=== PATIENT | female | born 1965 | race Caucasian/White ===

== ENCOUNTER → 2023-07-08 | Outpatient (CLI) | payer BC | LOC: M CARPUL 15:04 | DX: C50.919 Malignant neoplasm of unspecified site of unspecified female breast (principal) ==

== ENCOUNTER → 2024-04-17 | Outpatient (CLI) | payer BC ==
[~2024-04-17] MED LIST: BACT800T5 PO; BYST2.5T2 PO; DEXA4TA PO; FAMO20TA PO; GABA-1171 PO; GABA-282 PO; GABA-284 PO; LOPE-39 PO; ONDA-284 PO; OXYC-517 PO; PREG25CA PO; PROB250C PO; PROC10TA5 PO; gas x PO
== END ==
LOC: M CARPUL 09:28
PROVIDERS: ATTEND Nurse Practitioner
DX: C50.919 Malignant neoplasm of unspecified site of unspecified female breast (principal)

== ENCOUNTER → 2024-05-09 | Outpatient (CLI) | payer BC ==
[~2024-05-09] VITALS: Ht 165.1 cm; Wt 51.2 kg
[~2024-05-09] MED LIST changes: +CALCCAP4 PO; +CARD40TA PO; +DESI10TA28 PO; +LYRI75CA PO; +TAMO20TA8 PO
[2024-05-09 10:25] VITALS: BP 127/73; O2SAT 100
== END ==
LOC: M PAL 10:00
PROVIDERS: ATTEND Nurse Practitioner Adult Health
DX: C50.911 Malignant neoplasm of unspecified site of right female breast (principal); M54.16 Radiculopathy, lumbar region; M54.50 Low back pain, unspecified; M79.605 Pain in left leg; G89.3 Neoplasm related pain (acute) (chronic); G89.29 Other chronic pain; Z51.5 Encounter for palliative care; Z92.21 Personal history of antineoplastic chemotherapy; Z79.891 Long term (current) use of opiate analgesic; Z79.810 Long term (current) use of selective estrogen receptor modulators (SERMs); Z80.7 Family history of other malignant neoplasms of lymphoid, hematopoietic and related tissues

== ENCOUNTER → 2024-06-14 | Outpatient (CLI) | payer BC ==
[~2024-06-14] VITALS: Ht 165.1 cm; Wt 52.0 kg
[~2024-06-14] MED LIST changes: +ALBU2TAB13 PO; +DULC10SU2 PR; +EXEM25TA PO; +LYRI150C PO; +NEXI40CA PO; +PRED10TA2 PO; +PREG200C2 PO; +PREG50CA PO; +PROA1AER2 INH; +SPIR1CAP INH; +TREL1AER PO; +VENTAER INH
[2024-06-14 10:26] VITALS: BP 127/64; O2SAT 96
== END ==
LOC: M PAL 10:02
PROVIDERS: ATTEND Nurse Practitioner Adult Health
DX: C50.911 Malignant neoplasm of unspecified site of right female breast (principal); M54.16 Radiculopathy, lumbar region; M54.50 Low back pain, unspecified; M79.605 Pain in left leg; G89.3 Neoplasm related pain (acute) (chronic); G89.29 Other chronic pain; Z51.5 Encounter for palliative care; Z79.811 Long term (current) use of aromatase inhibitors; Z79.891 Long term (current) use of opiate analgesic; Z79.810 Long term (current) use of selective estrogen receptor modulators (SERMs); Z80.7 Family history of other malignant neoplasms of lymphoid, hematopoietic and related tissues; Z92.21 Personal history of antineoplastic chemotherapy; Z92.3 Personal history of irradiation

== ENCOUNTER → 2024-06-21 | Outpatient (CLI) | payer BC ==
[~2024-06-21] MED LIST changes: +ISOVUE-370 76% 100ML VIAL As Ordered ONE; -PREG200C2 PO; -PROA1AER2 INH; -SPIR1CAP INH; -TREL1AER PO
== END ==
LOC: M RAD 14:04
PROVIDERS: ATTEND Dietitian, Registered
DX: C50.919 Malignant neoplasm of unspecified site of unspecified female breast (principal); R06.02 Shortness of breath; J47.9 Bronchiectasis, uncomplicated; J43.9 Emphysema, unspecified
CPT/HCPCS: 71260; Q9967

== ENCOUNTER → 2024-07-19 | Outpatient (CLI) | payer BC ==
[~2024-07-19] VITALS: Ht 165.1 cm; Wt 51.9 kg
[~2024-07-19] MED LIST changes: -ISOVUE-370 76% 100ML VIAL As Ordered ONE; +PREG200C2 PO; +PROA1AER2 INH; +SPIR1CAP INH; +TREL1AER PO
[2024-07-19 09:34] VITALS: BP 125/68; O2SAT 95
== END ==
LOC: M PAL 09:23
PROVIDERS: ATTEND Nurse Practitioner Adult Health
DX: G89.29 Other chronic pain (principal); C50.911 Malignant neoplasm of unspecified site of right female breast; M54.16 Radiculopathy, lumbar region; M54.50 Low back pain, unspecified; Z51.5 Encounter for palliative care; Z79.51 Long term (current) use of inhaled steroids; Z79.52 Long term (current) use of systemic steroids; Z79.811 Long term (current) use of aromatase inhibitors; Z79.891 Long term (current) use of opiate analgesic; Z79.810 Long term (current) use of selective estrogen receptor modulators (SERMs); Z80.7 Family history of other malignant neoplasms of lymphoid, hematopoietic and related tissues; Z92.21 Personal history of antineoplastic chemotherapy; Z92.3 Personal history of irradiation

== ENCOUNTER → 2024-08-23 | Outpatient (CLI) | payer BC ==
[~2024-08-23] MED LIST changes: +GABA-1172 PO; -GABA-282 PO; +OXYC10TA12 PO
== END ==
LOC: M PAL 07:50
PROVIDERS: ATTEND Nurse Practitioner Adult Health
DX: G89.29 Other chronic pain (principal); C50.911 Malignant neoplasm of unspecified site of right female breast; M54.9 Dorsalgia, unspecified; Z51.5 Encounter for palliative care; Z79.51 Long term (current) use of inhaled steroids; Z79.891 Long term (current) use of opiate analgesic; Z79.899 Other long term (current) drug therapy; Z80.7 Family history of other malignant neoplasms of lymphoid, hematopoietic and related tissues; Z86.79 Personal history of other diseases of the circulatory system; Z92.21 Personal history of antineoplastic chemotherapy; Z92.3 Personal history of irradiation

== ENCOUNTER → 2024-10-04 | Outpatient (CLI) | payer BC ==
[~2024-10-04] VITALS: Ht 165.1 cm; Wt 53.5 kg
[~2024-10-04] MED LIST changes: +ATIV1TAB10 PO; +ONDA-83 PO
[2024-10-04 09:00] VITALS: BP 107/65; O2SAT 95
== END ==
LOC: M PAL 08:40
PROVIDERS: ATTEND Nurse Practitioner Adult Health
DX: G89.29 Other chronic pain (principal); C50.911 Malignant neoplasm of unspecified site of right female breast; M54.16 Radiculopathy, lumbar region; Z51.5 Encounter for palliative care; Z79.891 Long term (current) use of opiate analgesic; Z79.899 Other long term (current) drug therapy; Z80.7 Family history of other malignant neoplasms of lymphoid, hematopoietic and related tissues; Z86.79 Personal history of other diseases of the circulatory system; Z92.21 Personal history of antineoplastic chemotherapy; Z92.3 Personal history of irradiation

== ENCOUNTER → 2025-06-28 | Outpatient (CLI) | payer BC ==
[~2025-06-28] VITALS: Ht 165.1 cm; Wt 52.9 kg
[~2025-06-28] MED LIST changes: +MORP-69 PO; -PREG25CA PO; +PREG25CA63 PO; -PREG50CA PO; +PREG50CA87 PO
[2025-06-28 13:30] VITALS: BP 137/76; O2SAT 98
== END ==
LOC: M PAL 12:55
PROVIDERS: ATTEND Physician Assistant
DX: Z51.5 Encounter for palliative care (principal); Z85.3 Personal history of malignant neoplasm of breast; Z79.891 Long term (current) use of opiate analgesic; Z79.52 Long term (current) use of systemic steroids; Z79.899 Other long term (current) drug therapy

== ENCOUNTER → 2025-08-02 | Outpatient (CLI) | payer BC ==
[~2025-08-02] MED LIST changes: +ISOVUE-370 76% 100 ML VIAL As Ordered ONE
== END ==
LOC: M RAD 06:58
DX: C50.919 Malignant neoplasm of unspecified site of unspecified female breast (principal); K76.0 Fatty (change of) liver, not elsewhere classified; N28.1 Cyst of kidney, acquired
CPT/HCPCS: 71260; 74177; Q9967

== ENCOUNTER → 2025-08-07 | Outpatient (CLI) | payer BC ==
[~2025-08-07] MED LIST changes: -ISOVUE-370 76% 100 ML VIAL As Ordered ONE
== END ==
LOC: M RAD 12:52
PROVIDERS: ATTEND Neurological Surgery
DX: I87.2 Venous insufficiency (chronic) (peripheral) (principal)

== ENCOUNTER → 2025-08-21 | Outpatient (CLI) | payer BC ==
[~2025-08-21] MED LIST changes: +LIDOCAINE 2% MDV 20 ML VIAL As Ordered ONE; +TRIAMCINOLONE ACETONIDE SUSP 40MG/ML 1ML VIAL As Ordered ONE
== END ==
LOC: M RAD 14:30
PROVIDERS: ATTEND Neurological Surgery
DX: M70.62 Trochanteric bursitis, left hip (principal)
CPT/HCPCS: 20611; J3301

== ENCOUNTER → 2025-10-15 | Outpatient (REF) | payer BC ==
[~2025-10-15] MED LIST changes: -LIDOCAINE 2% MDV 20 ML VIAL As Ordered ONE; -TRIAMCINOLONE ACETONIDE SUSP 40MG/ML 1ML VIAL As Ordered ONE
[2025-10-15 18:52] LABS: FREE T4 1.3 NG/DL (0.89-1.76)
[2025-10-15 18:54] LABS: TOTAL 25(OH) VITAMIN D 24.1 NG/ML (20.0-100.0)
[2025-10-15 18:55] LABS: VITAMIN B12 LEVEL 332.0 PG/ML (211-911)
[2025-10-15 20:14] LABS: ESTIMATED AVERAGE GLUCOSE 111.0 MG/DL (60-110)
== END ==
LOC: M SFHCCAPE 10:39
PROVIDERS: ATTEND Physician Assistant Medical
DX: R53.83 Other fatigue (principal); G62.9 Polyneuropathy, unspecified; Z85.3 Personal history of malignant neoplasm of breast; Z86.79 Personal history of other diseases of the circulatory system